=== PATIENT | male | born 1960 | race Caucasian/White ===

== ENCOUNTER 2016-10-27 19:25 | Inpatient (IN) | payer MEDICARE ==
[~2016-10-27] VITALS: Ht 188 cm; Wt 78.2 kg
[2016-10-27 19:28] VITALS: BP 148/95; PULSE 103; RESP 16; O2SAT 100
[2016-10-27 19:53] LABS: BASOPHILS % (AUTO) 0.2 % (0-3); EOSINOPHILS % (AUTO) 0 % (0-5); MONOCYTES % (AUTO) 8.8 % (4-12); Mean Corpuscular Hemoglobin 31.8 pg (27.0-35.0); Mean Corpuscular Volume 95.7 fL (81-100); NEUTROPHILS % (AUTO) 63.2 % (40-74); Platelet Count 243 bil/L (150-400)
--- NOTE | 2016-10-27 20:10 | ED.REPORT ---
HPI-General Illness Date of Service Oct 27, 2016 ED Provider: Alex Irizarry DO The patient is a homeless 56 year old male who presents to the ED via EMS after being found on the sidewalk with decreased level of consciousness just prior to arrival. The patient currently reports abdominal pain with recent nausea and vomiting. He denies fever, headache, chest pain, or other symptoms. EMS found the patient with a BP of 165/103, a heart rate of 107, and otherwise normal vital signs. He was given IV fluids en route. The patient presents confused and does not remember how he got here. Nursing Notes Stated Complaint: DECREASED LOC Chief Complaint: General Complaint Nursing Notes Reviewed: Yes Allergies: Coded Allergies: No Known Allergies (Unverified , 10/28/16) No Active Prescriptions or Reported Meds General Time Seen by MD: 19:47 Chief Complaint Other (Decreased Level of Consciousness) Hx Obtained From: Patient, EMS Unable to Obtain Hx: Patient condition, Mental status Arrived By: Ambulance Sudden in Onset?: Yes Onset Occurred: Onset unknown (Found just prior to arrival) Symptom Duration: Since onset Location: : Abdomen Quality: Painful Severity: Current: Moderate Severity: Maximum: Moderate Pertinent Negative: Relieved by nothing Recent Healthcare: No recent doctor visit Past Medical History Past Medical History None reported Past Surgical History None reported Social History Drug Use: THC Other Social History: Homeless Ambulatory Status Independent Review of Systems Full Review of Systems Constitutional: Denies: Fever Respiratory: Denies: Non-productive cough, Shortness of breath Cardiovascular: Denies: Chest pain GI: Reports: Abdominal pain, Nausea, Vomiting Neurologic: Reports: Change LOC, Confusion, Denies: Headache Complete sys rev & neg: except as marked. Physical Exam Vital Signs Vital Signs Date Time Temp Pulse Resp B/P Pulse Ox O2 Delivery O2 Flow Rate FiO2 10/27/16 23:33 140/68 10/27/16 19:28 36.7 103 16 148/95 100 Room Air Initial VS: Reviewed Head / Eyes: Atraumatic, Normocephalic ENT: Conjunctiva normal, No scleral icterus Neck: Supple, Full range of motion Respiratory: Breath sounds normal, Clear to auscultation, No respiratory distress Cardiovascular: Regular rate & rhythm, Heart sounds normal General/Constitutional: Awake, Alert Alertness: Positive: Confused Abdomen: Soft Tenderness/Guarding/Rebound: Positive: Tender diffuse (Mild) Color / Condition: Positive: Diaphoresis present Neurologic: Speech NL, No motor deficits, No sensory deficits Mental Status: Positive: Confused, Disoriented to place, Disoriented to time Interpretation & Diagnostics Arterial Blood Gas Report: Time: 23:41 pH 7.328 pCO2 33 pO2 87.2 cHCO3 16.8 cBase(B) -7.8 URINE DRUG SCREEN: + Marijuana Otherwise Negative Lab Results Interpretation Result Diagram: 10/28/16 0515 10/28/16 0515 Test 10/27/16 19:38 10/27/16 23:06 Hold Purple Top Tube Received (Received) Hold Blue Top Tube Received (Received) Troponin T < 0.010ug/L (0.0-0.011) Lipase 53U/L (13-60) Procalcitonin 0.03ng/mL (0.00-0.08) Hold Red Top Tube Received (Received) Hold Nebo Top Tube Received (Received) Alcohols < 10mg/dL (0-10) Urine Color Yellow (YELLOW) Urine Appearance Clear (CLEAR,HAZY) Urine pH 6.0 (5.0-8.0) Urine Specific Hartman 1.011 (1.003-1.035) Urine Protein Negativemg/dL (NEG,TRACE) Urine Glucose (UA) Negativemg/dL (NEGATIVE) Urine Ketones 15mg/dL (NEGATIVE) Urine Occult Blood Negative (NEGATIVE) Urine Nitrite Negative (NEGATIVE) Urine Bilirubin Negative (NEGATIVE) Urine Urobilinogen Normalmg/dL (NORMAL) Urine Leukocyte Esterase Negative (NEGATIVE) Urine RBC 0-2/hpf (0-2) Urine WBC 0-5/hpf (0-5) Urine Epithelial Cells Occasional/hpf (NONE-MOD) Urine Crystals None seen (NONE SEEN) Urine Bacteria None/hpf (NONE-FEW) Urine Hyaline Casts Occasional/lpf (NONE) Urine Granular Casts None seen (NONE SEEN) Urine Waxy Casts None seen (NONE SEEN) Urine Red Blood Cell Casts None seen (NONE SEEN) Urine White Blood Cell Casts None seen (NONE SEEN) Urine Mucus None seen (None Seen) Urine Trichomonas None seen (NONE SEEN) Urine Yeast None (NONE SEEN) Urine Culture Reflexed Not indicated ECG Interpretation ECG Interpretation: Sinus rhythm rate 91 Time: 20:31 Interpreted by: ED physician X-Ray Chest Interpretation Chest Xray Interpretation: Normal x-ray View: Portable, 1 view Interpretation / Wet Read by: Wet read ED physician CT Head Interpretation IMPRESSION: No acute intracranial disease process. Dictated by: Mary Stanton MD, PhD on 10/27/2016 at 21:22 Study: Head CT no contrast Interpretation / Wet Read by: Interpret - Radiologist CT Abd / Pelvis Interpretation IMPRESSION: No CT findings to explain the patient's clinical symptoms. Report transmitted to the ED by radiologist Jhonny Aparicio M.D. at 10/28/2016 - 2:28:26 AM PDT Study type: Abdominal CT IV contrast Interpretation / Wet Read by: Interpret - Radiologist Re-Eval/Medical Decision Med Decision/Clinical Course Patient presents with altered mental status and is found of metabolic acidosis. He was quite diaphoretic on presentation. Laboratory work was reviewed. He was fluid resuscitated. At first he seemed rather delirious. This seemed to improve however then he was showing signs of alcohol withdrawal with this he was scored high as 20. He was treated with benzodiazepines and a banana bag. He then had abdominal pain and vomiting. CT scan was reassuring. Laboratory work seem to be improving. He was in no condition be discharged. He will be admitted to the PCU for further care and disposition. Time of Eval: 22:30 Patient Status: Condition improved Re-Evaluation/Progress Note: Patient is now more awake and alert. Discussed with patient x-ray, CT, and lab results, diagnosis, and plan for admit. Patient agrees with plan for care and all questions were addressed. Consultation : Referral / Consult Name: Indu Lee DO Consulted With: Hospitalist Call Returned at: 22:56 Microstrategy Architect Developer: Agrees with eval, Agrees with plan, Accepts admit Note: Requests ABG Counseled Regarding: Diagnosis, Lab results, Need for admission Discharge & Departure Primary Impression: Altered mental status Altered mental status type: disorientation Qualified Code: R41.0 - Disorientation, unspecified Additional Impressions: Metabolic acidosis Alcohol withdrawal Complication of substance-induced condition: with delirium Qualified Code: F10.231 - Alcohol dependence with withdrawal delirium Lactic acid acidosis Abdominal pain Abdominal location: generalized Qualified Code: R10.84 - Generalized abdominal pain Disposition: ADMITTED TO HOSPITAL Discharge Condition All VS Reviewed: Yes Condition: Improved Referrals: [facility] Scribe Attestation Portions of this note were transcribed by Jazmine Clark. IDr. Irizarry, personally performed the history, physical exam, and medical decision-making; I reviewed and confirmed the accuracy of the information in the transcribed note. Signed by: Tuan Mena, 10/28/2016, 02:45 copies to: [facility] Alex Irizarry DO Oct 27, 2016 20:10 JAZMINE CLARK Oct 27, 2016 20:19 Urine Waxy Casts None seen (NONE SEEN) Urine Red Blood Cell Casts None seen (NONE SEEN) Urine White Blood Cell Casts None seen (NONE SEEN) Urine Mucus None seen (None Seen) Urine Trichomonas None seen (NONE SEEN) Urine Yeast None (NONE SEEN) Urine Culture Reflexed Not indicated ECG Interpretation ECG Interpretation: Sinus rhythm rate 91 Time: 20:31 Interpreted by: ED physician X-Ray Chest Interpretation Chest Xray Interpretation: Normal x-ray View: Portable, 1 view Interpretation / Wet Read by: Wet read ED physician CT Head Interpretation IMPRESSION: No acute intracranial disease process. Dictated by: Mary Stanton MD, PhD on 10/27/2016 at 21:22 Study: Head CT no contrast Interpretation / Wet Read by: Interpret - Radiologist CT Abd / Pelvis Interpretation IMPRESSION: No CT findings to explain the patient's clinical symptoms. Report transmitted to the ED by radiologist Jhonny Aparicio M.D. at 10/28/2016 - 2:28:26 AM PDT Study type: Abdominal CT IV contrast Interpretation / Wet Read by: Interpret - Radiologist Re-Eval/Medical Decision Time of Eval: 22:30 Patient Status: Condition improved Re-Evaluation/Progress Note: Patient is now more awake and alert. Discussed with patient x-ray, CT, and lab results, diagnosis, and plan for admit. Patient agrees with plan for care and all questions were addressed. Consultation : Referral / Consult Name: Indu Lee DO Consulted With: Hospitalist Call Returned at: 22:56 Microstrategy Architect Developer: Agrees with eval, Agrees with plan, Accepts admit Note: Requests ABG Counseled Regarding: Diagnosis, Lab results, Need for admission Discharge & Departure Primary Impression: Altered mental status Altered mental status type: disorientation Qualified Code: R41.0 - Disorientation, unspecified Additional Impressions: Metabolic acidosis Alcohol withdrawal Complication of substance-induced condition: with delirium Qualified Code: F10.231 - Alcohol dependence with withdrawal delirium Disposition: ADMITTED TO HOSPITAL Discharge Condition All VS Reviewed: Yes Condition: Improved Referrals: [facility] Scribe Attestation Portions of this note were transcribed by Jazmine Clark. I, Dr. Irizarry, personally performed the history, physical exam, and medical decision-making; I reviewed and confirmed the accuracy of the information in the transcribed note. Signed by: Tuan Mena, 10/28/2016, 02:45 copies to: [facility] Alex Irizarry DO Oct 27, 2016 20:10 JAZMINE CLARK Oct 27, 2016 20:19
[2016-10-27 20:59] LABS: TROPONIN T < 0.010 ug/L (0.0-0.011)
[2016-10-27 21:01] LABS: Lipase 53 U/L (13-60)
[2016-10-27] MEDS ORDERED: 0.9% Sodium Chloride 1,000 ML IV ONE ×2 (21:10→23:00)
--- NOTE | 2016-10-27 21:25 | DRSVH ---
PROCEDURE: CT BRAIN WITHOUT CONTRAST ([id number]) INDICATIONS: altered mental status TECHNIQUE: Noncontrast 4.5 mm thick angled axial sections acquired from the foramen magnum to the vertex, with c oronal reformats. COMPARISON: None. FINDINGS: Image quality: Excellent. CSF spaces: Basal cisterns are patent. No extra-axial fluid collections. Ventricles are normal in size and shape. Brain: No midline shift. No intracranial masses or hemorrhage. Chavez-white matter interface is norm al. Cephalization noted in the anterior lateral margin of the left temporal lobe possibly related to remote trauma; please correlate with clinical history. Mild periventricular and subcortical white ma tter chronic microvascular ischemic changes are noted. Skull and face: Calvarium and visualized facial bones are intact, without suspicious lesions. Sinuses: Visualized sinuses and mastoids are clear. IMPRESSION: No acute intracranial disease process. Dictated by: Mary Stanton MD, PhD on 10/27/2016 at 21:22 Approved by: Mary Stanton MD, PhD on 10/27/2016 at 21:23
[2016-10-27 23:28] LABS: APPEARANCE,URINE CLEAR (CLEAR,HAZY); COLOR,URINE YELLOW (YELLOW); OCCULT BLOOD,URINE NEGATIVE (NEGATIVE); UROBILINOGEN,URINE NORMAL (NORMAL)
[2016-10-27 23:33] VITALS: BP 140/68
--- NOTE | 2016-10-27 23:48 | ABG ---
DateTimeAnalyzed 23:44:00 -_ pH ____7.328 - 7.350 7.450 pCO2 ___32.9__ -mmHg 35.0 45.0 pO2 ___87.2__ -mmHg 69.0 116 HCO3- ___16.8__ -mmol/L 22.0 26.0 ABE ___-7.8__ -mmol/L -2.0 2.0 tHb ___12.7__ -g/dL O2Hb ___93.9__ -% COHb ____1.1__ -% MetHb ____1.0__ -% sO2 ___95.9__ -% 25.0 FIO2 ___21.0__ -% Drawn By MK - Date/Time Notified____ 23:48:00 -_ Notified By MK - B 750 -mmHg tO2 ___16.8__ -Vol% Ajit test _Positive -
[2016-10-28] VITALS (11 sets, daily range): BP systolic 115–160; BP diastolic 65–97; PULSE 55–96; RESP 16–23; O2SAT 96–100
[2016-10-28] MEDS ORDERED: Thiamine Inj 100 MG, Folic Acid Inj 1 MG, Magnesium Sulfate 50% Inj 2 GM, Multivitamins... IV ONE ×5
[2016-10-28] MEDS ORDERED: Ondansetron 2 mg/mL 2 mL Inj IVPUSH PRN ×2 (00:05→00:30)
--- NOTE | 2016-10-28 00:23 | PCM.HPMED ---
Subjective Date of Service Oct 28, 2016 Primary Provider: Admitting Physician: Indu Lee DO Primary Care Physician: Aaron Attending Physician: Indu Lee DO Admit Status: From the Emergency Department Chief Complaint: Abdominal pain History of Present Illness: This is a 56-year-old male who presented via EMS due to decreased level of consciousness. EMS apparently found the patient [place] a bridge with decreased level of consciousness. The patient states that he does not remember how he arrived at the hospital or the events that transpired before EMS transport. His story seems to be evolving and the story he provided to me was a very different story then the one provided the emergency department physician. The patient states that beginning sometime this afternoon he began to have right lower quadrant abdominal pain along with nausea and vomiting. He denies any blood in the vomit. This was accompanied by several episodes of diarrhea today without hematochezia or melena. He also admits to chills. He states that due to the retching he is also experiencing a frontal headache. He denies any chest pain or pressure, shortness of breath, numbness or tingling extremities, visual changes. He denies any trauma to his body. Initial vital signs on admit were temperature 36.7 Celsius, pulse 103, respiratory rate 16, blood pressure 148/95, satting 100% on room air. CBC showed no concerning abnormalities. Sodium 133, chloride 88, carbon dioxide 12 , BUN 10, creatinine 0.95, glucose 144, lactic acid 2.5, AST 154, ALT 86, troponin less than 0.010. Pro calcitonin 0.03 and lipase 53. Urine tox screen was positive for THC. Urinalysis showed no concerning abnormalities. ABG: PH 7.328, PCO2 33, PO2 87.2, HCO3 16.8. CT scan of the brain without contrast showed no acute intracranial abnormalities. Night hawk reading of CT abdomen with contrast showed no concerning abnormalities. Chest xray showed no acute cardiopulmonary disease. Review of Systems: A comprehensive review of systems was conducted with the patient and found to be negative except as above in the History of Present Illness. Allergies Coded Allergies: No Known Allergies (Unverified , 10/28/16) Home Medications Patient takes no medications. PMH Bipolar disorder Possible history of alcoholism (reported to nursing but no ER or resident). Surgical History Patient initially denied any past surgical history. On examination of his abdomen he has a large midline surgical scar which he states was due to "removing a bug." Family History He states his mom and dad are healthy Social History Hx Alcohol Use: No Hx Substance Use: Yes Hx Tobacco Use: No Additional Information Uses marijuana. Exam Vital Signs Vital Sign - Last Date Time Temp Pulse Resp B/P Pulse Ox O2 Delivery O2 Flow Rate FiO2 10/27/16 23:33 140/68 10/27/16 19:28 36.7 103 16 100 Room Air Intake and Output 10/27/16 10/27/16 10/28/16 Cumulative From/Thru 15:00 23:00 07:00 10/27/16 19:28 - 10/27/16 23:07 Intake Total 1300 ml 1000 ml 2300 ml Balance 1300 ml 1000 ml 2300 ml Intake IV Total 1300 ml 1000 ml 2300 ml Exam General: No acute distress, well-developed, thin man. HEENT: Normocephalic,. Small abrasion midline forehead. External ears without defect. Pupils equal, round, and reactive to light and accommodation. Anicteric sclerae, moist conjunctivae, and no lid lag. Oropharynx free of erythema and cobble stoning with moist mucosa. Neck: Supple with full range of motion. No jugular venous distension. No bruits. No lymphadenopathy or thyromegaly. Cardiovascular: Regular rate and rhythm with no murmurs, rubs, or gallops appreciated Pulmonary: Clear to auscultation bilaterally with no crackles, wheezes, or rhonchi. Normal respiratory effort with no use of accessory muscles. Abdomen: Bowel tones present. Soft, some tenderness in right lower quadrant of abdomen, nondistended. No hepatosplenomegaly or masses appreciated. Midline surgical scar that is well-healed. Extremities: No clubbing, cyanosis, edema, or lymphadenopathy appreciated. Skin: Normal temperature, turgor, and texture; no rash, ulcers, or subcutaneous nodules appreciated. Neurological: Cranial nerves grossly intact. Normal muscle strength, tone, and bulk. Reflexes, coordination, and sensory function within normal limits. No known gait impairment. Psychiatric: Patient is alert to person but not place or time. Lab and Diagnostics Result Diagram: 10/27/16193710/27/161937 X-Rays, CTs and MRIs CT of the brain without contrast on 10/27/2016: IMPRESSION: No acute intracranial disease process. Dictated by: Mary Stanton MD, PhD on 10/27/2016 at 21:22 Wet read chest xray 10/28/2016: No acute cardiopulmonary disease. Nighthawk reading CT of the abdomen with contrast on 10/28/2016: Impression: No CT findings to explain the patient's clinical symptoms. Radiologist: Jhonny Aparicio MD. Assessment & Plan This is a 56-year-old male who presents for decreased level of consciousness. He has an unusual story which changed several times in the emergency department. He relayed to me that he began feeling ill earlier today with abdominal pain, diarrhea, chills, nausea, and vomiting. Due to the dry heaving he is also developed a frontal headache. The abdominal pain is present in the right lower quadrant and described as sharp. CT of head and abdomen showed no concerning abnormalities. Doubt infectious etiology as WBC within normal limits and procalcitonin .03. Abdominal pain, present on admission, ongoing: -Right lower quadrant abdominal pain with diarrhea, nausea, and vomiting. -Unknown etiology. Nighthawk reading of CT of abdomen with contrast showed no concerning abnormalities. -Differential includes appendicitis, viral gastroenteritis, colitis, diverticulitis, nephrolithiasis, pyelonephritis. -Patient does not meet sepsis criteria. -PCR stool panel ordered. Anion gap metabolic acidosis, present on admission: -Anion gap of 33. Blood gas shows ph of 7.328, PCO2 33, PO2 of 87.2, bicarbonate 16.8 -This is likely secondary to lactic acidosis which was 2.5 on arrival. -We will repeat lactic acid's every 2 hours and bolus with fluids as needed. -CMP in am. Possible history of alcoholism, present on admission: -Patient received banana bag in ED. -CIWA protocol ordered. Hyponatremia, present on admission, ongoing: -Sodium level of 133. -We will start normal saline at 75 L per hour. Elevated transaminases, present on admission, ongoing: -On admit AST 154, ALT 86. -The pattern suggests possible alcoholism. Patient ethanol level on admit was within normal limits. Patient given banana bag in the emergency department. -We will order hepatitis panel. -Consider right upper quadrant ultrasound in the morning. DVT prophylaxis with Lovenox Patient is admitted under observation status with expected length of stay less than 2 midnights due to severity of presenting symptoms, risk of adverse event, and complexity of treatment plan. Pain Evaluation: Adequate Pain Control Resuscitation Status: DNR/DNI:Do Not Resuscitate/Intubate Attending Statement The patient was seen and examined together with house staff on 10/28/2016 and I agree with the history, exam and plan as outlined in the note above. Jr Mcnair DO Oct 28, 2016 00:23 Indu Lee DO Oct 28, 2016 06:11
[2016-10-28] MEDS ORDERED: Polyethylene Glycol (PEG) 17 Gm Powder PO PRN (00:30)
[2016-10-28] MEDS ORDERED: Alum-Mag Hydrox-Simeth 30 mL Suspension PO PRN (00:30)
[2016-10-28] MEDS ORDERED: 0.9% Sodium Chloride 500 ML IV ONE (02:30)
[2016-10-28] MEDS: 0.9% Sodium Chloride 1,000 ML IV SCH ×3 (04:05→19:16)
[2016-10-28 05:39] LABS: BASOPHILS % (AUTO) 0.1 % (0-3); EOSINOPHILS % (AUTO) 0 % (0-5); MONOCYTES % (AUTO) 4.7 % (4-12); Mean Corpuscular Hemoglobin 31.9 pg (27.0-35.0); Mean Corpuscular Volume 94.6 fL (81-100); NEUTROPHILS % (AUTO) 87.1 % (40-74); Platelet Count 167 bil/L (150-400)
--- NOTE | 2016-10-28 06:26 | NUR ---
P) Admit Pt. states he doesn't drink alcohol, but he does drink beer, states last beer was a week ago. Pt. also claims he is Bipolar but stopped taking his meds 4 years go, does not know what he took, does not remember the pharmacy he used but it was in [place]. Continues to c/o headache but it has improved with drinking ice water. His cardiac rhythm is sinus with some PVC's, initial CIWA was 26, then he went to sleep without any further medication. Initially febrile with a temp of 38c axillary he came down to 37.2 with passive cooling measures.Breath sounds slightly coarse with a faint expiratory wheeze scattered throughout. Pt. received 1mg ativan in ER, on arrival to floor his heart rate was in the 60's, now it is in the 90's and he is dozing restlessly. I) Meds per 's orders, cont. to monitor. E) Resting restlessly.
--- NOTE | 2016-10-28 08:57 | DRSVH ---
PROCEDURE: CT ABDOMEN AND PELVIS WITH CONTRAST ([id number]) INDICATIONS: abdominal pain vomiting, TECHNIQUE: After the administration of intravenous contrast, 5 mm thick sections acquired from the diaphragm to the symphysis. 5 mm coronal and sagittal reformats were acquired. For radiation dose reduction, the following was used: automated exposure control, adjustment of mA and/or kV according to patient siz e. COMPARISON: None. FINDINGS: Image quality: Excellent. ABDOMEN: Lung bases: Lung bases are clear. Heart size is normal. Solid organs: There is diffuse hepatic fatty infiltration. Liver and spleen are normal in size and e nhancement. Gallbladder is normal. Biliary system is non dilated. Pancreas enhances normally. No adrenal nodules. Kidneys demonstrate normal size and enhancement, without hydronephrosis. Peritoneum and bowel: There are scattered colonic diverticula. No evidence for active diverticulitis . Fluid filled normal caliber stomach and small bowel loops are noted. Bowel loops demonstrate normal wall thickness. No free fluid or air. Nodes and vessels: No retroperitoneal or mesenteric adenopathy by size criteria. Aorta and inferior vena cava are normal in size. Miscellaneous: No ventral hernias. PELVIS: Genitourinary: Bladder wall thickness is normal. Miscellaneous: No inguinal hernias or adenopathy. Bones: No suspicious bony lesions. No vertebral body compression fractures. IMPRESSION: 1. Fluid-filled stomach and nondistended small bowel loops. The finding is nonspecific and could be r elated to gastroenteritis. Clinical correlation suggested. 2. Colonic diverticulosis. No active diverticulitis. 2. Hepatic steatosis. No significant discrepancy with the cnc machinist 2nd shift radiology preliminary report. Dictated by: Terri Parr M.D. on 10/28/2016 at 8:51 Transcribed by: LUIS on 10/28/2016 at 8:56 Approved by: Terri Parr M.D. on 10/28/2016 at 9:15
--- NOTE | 2016-10-28 08:59 | DRSVH ---
PROCEDURE: X-RAY CHEST ONE VIEW, PORTABLE ([id number]) INDICATIONS: cough TECHNIQUE: One view of the chest was acquired. COMPARISON: None. FINDINGS: Surgical changes and devices: None. Lungs and pleura: No pleural effusions or pneumothorax. Lungs are clear. Mediastinum: Mediastinal contours appear normal. Heart size is normal. Bones and chest wall: No suspicious bony lesions. Overlying soft tissues appear unremarkable. IMPRESSION: No acute cardiopulmonary disease. Dictated by: Kenneth Desai [facility] Interpreted: Mary Stanton MD on 10/28/2016 at 8:58 Transcribed by: DANIA on 10/28/2016 at 8:58 Approved by: Mary Stanton MD, PhD on 10/28/2016 at 11:27
[2016-10-28] MEDS: Multivit-Miner-Folic Acid-Iron Tablet PO SCH (09:51)
--- NOTE | 2016-10-28 12:05 | NUR ---
Social Work: Initial Assessment D: EMR reviewed. Pt is a 56 y/o male Marilee for AMS, metabolic acidosis per H&P. Pt is homeless and arrived via ambulance. SW met with pt at bedside to conduct initial assessment. Pt was alert and oriented x3. SW explained role and wrote phone number on white board in room. Pt confirmed he has completed DPOA/advanced directive ppw and SW encourage pt to provide a copy to the hospital. Pt can't recall the name of his DPOA but states that he lives in [place]. Pt confirmed he does not have any [facility] in the area and does not have anyone the hospital can contact for discharge planning. Pt's insurance is Medicare. Pt does not have a PCP. Pt declined scheduling a new PCP appointment at [facility]. SW encouraged pt to call SW phone number on white board if he changed his mind. Pt does not own or use any DME. Pt does not drive. Pt is homeless and lives under [place] bridge in [place]. SW asked pt if he would like to discuss community resources for housing, pt declined. SW encouraged pt to call phone number on white board if pt would like community resources for food, clothing, housing. [facility] does not anticipate any discharge needs at this time but will continue to follow. A: Pt who is homeless and independent at baseline P: Pt likely to discharge back to homeless when medically stable. Pt declines community resources. [facility] does not anticipate any discharge needs at this time but will continue to follow if needs arise. ALISHA Barros Addendum: 10/28/16 at 1215 by GRISEL MACKEY Amended: Links added.
[2016-10-28 13:12] LABS: Unsaturated Iron Binding 121.7 ug/dL
[2016-10-28] MEDS ORDERED: Potassium Chloride 20 mEq SR Tablet PO ONE (14:55)
--- NOTE | 2016-10-28 15:15 | PCM.PNMED ---
Subjective Date of Service Oct 28, 2016 Subjective This is a 56-year-old male who presented via EMS due to decreased level of consciousness. He reports that he was sleeping under a bench last night when he hit his head after falling. He feels nauseous this morning. He reports that he only drank 2 beers yesterday. He does not regularly drink alcohol and does not drink any moonshine or other substances. He does not do any illicit drugs. He was living in [place] during the Winter and moved back 09/27/16. Exam Vital Signs Vital Sign - Last Date Time Temp Pulse Resp B/P Pulse Ox O2 Delivery O2 Flow Rate FiO2 10/28/16 12:23 36.8 92 23 126/83 98 Room Air Intake and Output 10/27/16 10/27/16 10/28/16 Cumulative From/Thru 15:00 23:00 07:00 10/27/16 19:28 - 10/28/16 06:25 Intake Total 1300 ml 3503 ml 4803 ml Output Total 600 ml 600 ml Balance 1300 ml 2903 ml 4203 ml Intake Oral 1000 ml 1000 ml IV Total 1300 ml 2503 ml 3803 ml Output Urine Total 600 ml 600 ml # Bowel Movements 0 0 Exam General: No acute distress, well-developed, thin man. HEENT: Normocephalic,. Small abrasion midline forehead. External ears without defect. Anicteric sclerae, moist conjunctivae, and no lid lag. Neck: Supple with full range of motion. Cardiovascular: Regular rate and rhythm with no murmurs, rubs, or gallops appreciated Pulmonary: Clear to auscultation bilaterally with no crackles, wheezes, or rhonchi. Normal respiratory effort with no use of accessory muscles. Abdomen: Bowel tones present. Soft,nontender, nondistended. No hepatosplenomegaly or masses appreciated. Midline surgical scar that is well- healed. Extremities: No clubbing, cyanosis, edema, or lymphadenopathy appreciated. Skin: Diffusely jeffers. Normal temperature, turgor, and texture; no rash or ulcers appreciated. Neurological: Cranial nerves grossly intact. Normal muscle strength, tone, and bulk. Psychiatric: Patient is alert and oriented to person, place, and time IVs and Medications Medications Reviewed: Medications were reviewed in detail Lab and Diagnostics Result Diagram: 10/28/1615 10/28/16514 X-Rays, CTs and MRIs CT of the brain without contrast on 10/27/2016: IMPRESSION: No acute intracranial disease process. Dictated by: Mary Stanton MD, PhD on 10/27/2016 at 21:22 PROCEDURE: X-RAY CHEST ONE VIEW, PORTABLE IMPRESSION: No acute cardiopulmonary disease. Approved by: Mary Stanton MD, PhD on 10/28/2016 at 11:27 PROCEDURE: CT ABDOMEN AND PELVIS WITH CONTRAST IMPRESSION: 1. Fluid-filled stomach and nondistended small bowel loops. The finding is nonspecific and could be related to gastroenteritis. Clinical correlation suggested. 2. Colonic diverticulosis. No active diverticulitis. 2. Hepatic steatosis. No significant discrepancy with the shift stacker radiology preliminary report. Approved by: Terri Parr M.D. on 10/28/2016 at 9:15 Assessment & Plan This is a 56-year-old male who presents for decreased level of consciousness. He has an unusual story which changed several times in the emergency department. He relayed to me that he began feeling ill earlier today with abdominal pain, diarrhea, chills, nausea, and vomiting. Due to the dry heaving he is also developed a frontal headache. The abdominal pain is present in the right lower quadrant and described as sharp. CT of head and abdomen showed no concerning abnormalities. Doubt infectious etiology as WBC within normal limits and procalcitonin .03. Alcohol dependence, present on admission, active: -Pt reports only having 2 beers occasionally but probable alcohol dependence -Patient received banana bag in ED. -Multivitamin and thiamine daily -WA protocol ordered. Acute encephalopathy, present on admission, improved. -Likely secondary to probable alcohol intoxication and withdrawal as above -Pt was disoriented to place and time at time of admission - Continue to monitor Possible hemochromatosis, present on admission. - Pt has skin hyperpigmentation and elevated transaminases - Iron 185, TIBC 307, 60% iron saturation, ferritin 687; iron greater than 150 and ferritin greater than 300 are associated with hemochromatosis - Consider genetic testing - Continue to monitor blood work daily Abdominal pain, present on admission, resolved: -Right lower quadrant abdominal pain with diarrhea, nausea, and vomiting. -Unknown etiology. CT scan shows possible gastroenteritis. -Differential includes appendicitis, viral gastroenteritis, colitis, diverticulitis, nephrolithiasis, pyelonephritis. -Patient does not meet sepsis criteria. -PCR stool panel ordered. Anion gap metabolic acidosis, present on admission, improving -Anion gap of 33 on admission. Blood gas shows ph of 7.328, PCO2 33, PO2 of 87.2, bicarbonate 16.8 on admission - Improved to 19 today -Possibly secondary to lactic acidosis which was 2.5 on arrival.Lactic acidosis resolved.Possibly related to ethanol intoxication or iron from hematochromatosis. -Continue monitoring Hyponatremia, present on admission, ongoing: -Sodium level of 133. -We will start normal saline at 75 L per hour. Elevated transaminases, present on admission, ongoing: -On admit AST 154, ALT 86. -The pattern suggests possible alcoholism. Patient ethanol level on admit was within normal limits. Patient given banana bag in the emergency department. Possible hemochromatosis -Hepatitis panel pending -Consider right upper quadrant ultrasound if abdominal pain returns DVT prophylaxis with Lovenox VTE Mechanical Devices: Intermittant Pneumatic CD Resuscitation Status: DNR/DNI:Do Not Resuscitate/Intubate Attending Statement The patient was seen and examined together with Dr. Hernández on 10/28/16 and I have added additional information to the note above. Gena Hernández DO Oct 28, 2016 14:44 Beata Richards DO Oct 30, 2016 15:00
--- NOTE | 2016-10-28 18:02 | NUR ---
Mentation.. Has had coherent conversation for the most part. CIWA 7-11. Pt has not required any meds other than for headache. Has been found up amb into the bathroom by himself and pulled his IV out.. Pt impulsive at times. Reminders given with instructions to call for help.
--- NOTE | 2016-10-28 18:55 | NUR ---
Case Management: IMM explained to patient at 1740. Signed original placed in chart, copy given to patient. Josephine Villafana RN
[2016-10-29] VITALS (8 sets, daily range): BP systolic 131–145; BP diastolic 85–96; PULSE 53–79; RESP 12–18; O2SAT 95–100
[2016-10-29 03:10] LABS: Hepatitis A Antibody IgM Negative (Negative); Hepatitis B Core Antibody IgM Negative (Negative)
[2016-10-29 04:23] LABS: Mean Corpuscular Hemoglobin 31.8 pg (27.0-35.0); Mean Corpuscular Volume 94.7 fL (81-100); NEUTROPHILS % (AUTO) 73.4 % (40-74); Platelet Count 134 bil/L (150-400)
[2016-10-29 04:24] LABS: BASOPHILS % (AUTO) 0.1 % (0-3); EOSINOPHILS % (AUTO) 0.8 % (0-5); MONOCYTES % (AUTO) 6.6 % (4-12)
[2016-10-29 04:48] LABS: Magnesium 1.9 mg/dL (1.6-2.6); Phosphorus 2.3 mg/dL (2.5-4.9)
[2016-10-29] MEDS ORDERED: Potassium Chloride 20 mEq SR Tablet PO ONE (06:50)
[2016-10-29] MEDS: 0.9% Sodium Chloride 1,000 ML IV SCH (07:59)
[2016-10-29] MEDS: Multivit-Miner-Folic Acid-Iron Tablet PO SCH (08:31)
--- NOTE | 2016-10-29 11:50 | PCM.PNMED ---
Subjective Date of Service Oct 29, 2016 Subjective This is a 56-year-old male who presented via EMS due to decreased level of consciousness. Overnight, his CIWA score ranged from 7 to 9. This morning it was 2. He has diarrhea and has not been able to eat solid food yet. He no longer has abdominal pain. He does not have chest pain or dyspnea. He has never used IV drugs. Exam Vital Signs Vital Sign - Last Date Time Temp Pulse Resp B/P Pulse Ox O2 Delivery O2 Flow Rate FiO2 10/29/16 05:21 72 10/29/16 03:45 36.8 18 131/85 98 Room Air Intake and Output 10/28/16 10/28/16 10/29/16 Cumulative From/Thru 15:00 23:00 07:00 10/27/16 19:28 - 10/29/16 05:32 Intake Total 2610 ml 1005 ml 8418 ml Output Total 2700 ml 600 ml 3900 ml Balance -90 ml 405 ml 4518 ml Intake Oral 1850 ml 300 ml 3150 ml IV Total 760 ml 705 ml 5268 ml Output Urine Total 2700 ml 600 ml 3900 ml # Bowel Movements 1 0 1 Exam General: No acute distress, well-developed, thin man. HEENT: Normocephalic,. Small abrasion midline forehead. External ears without defect. Anicteric sclerae, moist conjunctivae, and no lid lag. Neck: Supple with full range of motion. Cardiovascular: Regular rate and rhythm with no murmurs, rubs, or gallops appreciated Pulmonary: Clear to auscultation bilaterally with no crackles, wheezes, or rhonchi. Normal respiratory effort with no use of accessory muscles. Abdomen: Bowel tones present. Soft,nontender, nondistended. No hepatosplenomegaly or masses appreciated. Midline surgical scar that is well- healed. Extremities: No clubbing, cyanosis, edema, or lymphadenopathy appreciated. Skin: Diffusely jeffers. Lipoma right base of neck and right upper back. Normal temperature, turgor, and texture; no rash or ulcers appreciated. Neurological: Cranial nerves grossly intact. Normal muscle strength, tone, and bulk. Psychiatric: Patient is alert and oriented to person, place, and time IVs and Medications Medications Reviewed: Medications were reviewed in detail Lab and Diagnostics Result Diagram: 10/29/16 0415 10/29/16414 X-Rays, CTs and MRIs CT of the brain without contrast on 10/27/2016: IMPRESSION: No acute intracranial disease process. Dictated by: Mary Stanton MD, PhD on 10/27/2016 at 21:22 PROCEDURE: X-RAY CHEST ONE VIEW, PORTABLE IMPRESSION: No acute cardiopulmonary disease. Approved by: Mary Stanton MD, PhD on 10/28/2016 at 11:27 PROCEDURE: CT ABDOMEN AND PELVIS WITH CONTRAST IMPRESSION: 1. Fluid-filled stomach and nondistended small bowel loops. The finding is nonspecific and could be related to gastroenteritis. Clinical correlation suggested. 2. Colonic diverticulosis. No active diverticulitis. 2. Hepatic steatosis. No significant discrepancy with the resident assistant radiology preliminary report. Approved by: Terri Parr M.D. on 10/28/2016 at 9:15 Assessment & Plan This is a 56-year-old male who presents for decreased level of consciousness. He has an unusual story which changed several times in the emergency department. He relayed to me that he began feeling ill earlier today with abdominal pain, diarrhea, chills, nausea, and vomiting. Due to the dry heaving he is also developed a frontal headache. The abdominal pain is present in the right lower quadrant and described as sharp. CT of head and abdomen showed no concerning abnormalities. Doubt infectious etiology as WBC within normal limits and procalcitonin .03. Alcohol dependence, present on admission, improving: -Pt reports only having 2 beers occasionally but probable alcohol dependence -Patient received banana bag in ED. -Multivitamin and thiamine daily -CIWA protocol Acute encephalopathy, present on admission, resolved. -Likely secondary to probable alcohol intoxication and withdrawal as above -Pt was disoriented to place and time at time of admission - Continue to monitor Hemochromatosis, present on admission. - Pt has skin hyperpigmentation and elevated transaminases - Iron 185, TIBC 307, 60% iron saturation, ferritin 687; iron greater than 150 and ferritin greater than 300 are associated with hemochromatosis - Consider genetic testing - Continue blood work daily - Hematology referral as an outpatient Abdominal pain and diarrhea, present on admission, resolved: -Right lower quadrant abdominal pain with diarrhea, nausea, and vomiting. -Unknown etiology. CT scan shows possible gastroenteritis. -Differential includes appendicitis, viral gastroenteritis, colitis, diverticulitis, nephrolithiasis, pyelonephritis. -Patient does not meet sepsis criteria. -Advance diet as tolerate -PCR stool panel ordered. Anion gap metabolic acidosis, present on admission, improving -Anion gap of 33 on admission. Blood gas shows ph of 7.328, PCO2 33, PO2 of 87.2, bicarbonate 16.8 on admission - Improved to 18 today -Possibly secondary to lactic acidosis which was 2.5 on arrival.Lactic acidosis resolved.Possibly related to ethanol intoxication or iron from hematochromatosis. -Continue monitoring Hypokalemia, acute, resolved - Likely secondary to diarrhea - 40 meq KCl yesterday and today - Continue to monitor tomorrow morning Hyponatremia, present on admission, resolved: -Sodium level of 138 today. -Discontinue IV fluids Elevated transaminases, present on admission, ongoing: -On admit AST 154, ALT 86. -The pattern suggests possible alcoholism. Patient ethanol level on admit was within normal limits. Patient given banana bag in the emergency department. 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 MELD score 6, 1.9% estimated 3 month mortality. -Start propanolol 20 mg twice daily for variceal hemorrhage prophylaxis -Monitor heart rate Hepatitis C, present on admission - Pt will need to follow up with a PCP about pursuing treatment Bipolar disorder, chronic - Follow up with psychologist and PCP as outpatient DVT prophylaxis with Lovenox VTE Mechanical Devices: Intermittant Pneumatic CD Resuscitation Status: DNR/DNI:Do Not Resuscitate/Intubate Attending Statement The patient was seen and examined together with Dr. Hernández on 10/29/16 and I have added additional information to the note above. Gena Hernández DO Oct 29, 2016 06:36 Beata Richards DO Oct 29, 2016 17:59
--- NOTE | 2016-10-29 15:36 | NUR ---
Patient progressing towards planned outcomes. Alert and oriented x 3. No complaints. Denies pain. Vital signs stable. Up with SBA, ambulating in room without difficulty. Tolerating diet. Denies nausea. Will continue to monitor.
[2016-10-30 02:48] LABS: BASOPHILS % (AUTO) 0.2 % (0-3); EOSINOPHILS % (AUTO) 2.1 % (0-5); MONOCYTES % (AUTO) 9.7 % (4-12); Mean Corpuscular Hemoglobin 32.6 pg (27.0-35.0); Mean Corpuscular Volume 94.7 fL (81-100); NEUTROPHILS % (AUTO) 61.2 % (40-74); Platelet Count 133 bil/L (150-400)
[2016-10-30 03:03] VITALS: BP 144/91; PULSE 68; RESP 15; O2SAT 100
[2016-10-30 03:11] LABS: Phosphorus 3.5 mg/dL (2.5-4.9)
--- NOTE | 2016-10-30 04:14 | NUR ---
Mentation Pt conversed briefly with staff. Pt appropriate. Pt states multiple times that he is going to go home tomorrow. Pt anxious to d/c from hospital. Pt slept well throughout the night.
[2016-10-30 05:30] VITALS: PULSE 68
[2016-10-30 08:25] VITALS: BP 128/85; PULSE 56; RESP 16; O2SAT 99
[2016-10-30] MEDS: Multivit-Miner-Folic Acid-Iron Tablet PO SCH (08:32)
--- NOTE | 2016-10-30 12:02 | PCM.DIMED ---
Gena Hernández DO 10/30/16 0722: Discharge Instructions Date of Service Oct 30, 2016 Dates of Hospitalization Oct 27, 2016 at 23:35 Discharge Diagnosis Discharge Diagnosis You have hemochromatosis (iron overload) and hepatitis C. You blood pressure was also slightly high. Diet Discharge Diet: No restrictions Activity Discharge Activity: No restrictions Call your provider Call your provider for: Fever or Chills, Shortness of breath, Bleeding, Chest pain, Vomitting, Excessive diarrhea, Weakness (unilateral) Patient Instructions Patient Instructions [facility] up with the [facility] in order to get a new primary care provider. Your new primary care provider will help with getting you a possible referral to gastroenterology (liver specialist) about hepatitis C treatment. Go to the [facility] at [address] [place] [address] on Tuesday to schedule your appointment. You also need follow up with hematology (blood specialist) about hemochromatosis (iron overload) at [address] [place] [address], [address], [place] [address], to schedule an appointment. Take propranolol 20 mg twice per day. This is for your blood pressure. Continue to follow with your psychologist. I also recommend that you stop drinking alcohol for your liver health. You should also take a vitamin B1 and a folate supplement daily. Follow-up Provider: [facility] Follow-up with PCP in: 1 week Provider: Juanita Luna MD Follow-up in: Other (as soon as possible) Beata Richards DO 10/30/16 1241: Discharge Instructions Diet Discharge Diet: No restrictions, Other (low sodium diet) Patient Instructions Patient Instructions Please continue to take the propranolol as this will also help to keep the pressures low in your liver artery system which is important to do in someone in hemochromatosis. Attending's Statement The patient was seen and examined together with Dr. Hernández on 10/30/16 and I have added additional information to the note above. Gena Hernández DO Oct 30, 2016 07:22 Beata Richards DO Oct 30, 2016 12:41
[2016-10-30] MEDS ORDERED: FOLI0.4T2 PO (12:10)
[2016-10-30] MEDS ORDERED: PROP20TA5 PO ×2 (12:10→12:14)
[2016-10-30] MEDS ORDERED: Thiamine PO (12:10)
[2016-10-30 12:13] VITALS: BP 142/93; PULSE 46; RESP 20; O2SAT 100
--- NOTE | 2016-10-30 14:43 | NUR ---
Discharge Pt. given discharge instructions per MD orders. Hard prescription copy given. Care notes on Decreased LOC and metabolic acidosis given, as well as care notes on Propranolol. Saline lock d/c. Tele d/c. Pt. showered prior to d/c. Pt. verbalized understanding. Approx. discharge time 1335.
--- NOTE | 2016-10-30 14:51 | NUR ---
Social Work Note: Discharge Data& Assessment: Per pt is medically ready to discharge home. Abhilash Harris Jr is a 56 year old male admitted on 10/27/2016 for AMS and metabolic acidosis. Per pt is medically improved and ready for discharge. SW met with pt at bedside to confirm discharge plan and assess for any unmet needs. Pt confirmed plan to discharge back into the community and explained he plans to go [place] [facility]. Pt explained that he understands he has a follow up appointment on Tuesday across the [address] from the hospital. Pt declined any resources but did request a bus pass or help with the cost of a bus ride if possible as pt did not have the few dollars for [employer]. SW provided with a bus pass. Pt appreciative and denies any other needs. No other discharge needs identified. Plan: Per pt is medically ready to discharge back into the community. Pt appreciative and denies any other needs. No other discharge needs identified. ALISHA Coronado
--- NOTE | 2016-10-30 21:11 | PCM.DC.MED ---
Discharge Summary Date of Service Oct 30, 2016 Dates of Hospitalization Date of Hospital Admission Oct 27, 2016 at 23:35 Date of Discharge: Oct 30, 2016 Providers: Admitting Physician: Idnu Lee DO Primary Care Physician: Aaron Attending Physician: Indu Lee DO Diagnosis at Time of Discharge Diagnosis at Time of Discharge Alcohol dependence Acute encephalopathy Hemochromatosis Abdominal pain and diarrhea Anion gap metabolic acidosis Hypokalemia Hyponatremia Elevated transaminases Hepatitis C Bipolar disorder Procedures XRay, CTs & MRIs CT of the brain without contrast on 10/27/2016: IMPRESSION: No acute intracranial disease process. Dictated by: Mary Stanton MD, PhD on 10/27/2016 at 21:22 PROCEDURE: X-RAY CHEST ONE VIEW, PORTABLE IMPRESSION: No acute cardiopulmonary disease. Approved by: Mary Stanton MD, PhD on 10/28/2016 at 11:27 PROCEDURE: CT ABDOMEN AND PELVIS WITH CONTRAST IMPRESSION: 1. Fluid-filled stomach and nondistended small bowel loops. The finding is nonspecific and could be related to gastroenteritis. Clinical correlation suggested. 2. Colonic diverticulosis. No active diverticulitis. 2. Hepatic steatosis. No significant discrepancy with the log buyer radiology preliminary report. Approved by: Terri Parr M.D. on 10/28/2016 at 9:15 Brief History From the history and physical performed by Dr. Jr Mcnair on 10/28/16: This is a 56-year-old male who presented via EMS due to decreased level of consciousness. EMS apparently found the patient under a bridge with decreased level of consciousness. The patient states that he does not remember how he arrived at the hospital or the events that transpired before EMS transport. Hospital Course This is a 56-year-old male with history of alcohol dependence and bipolar disorder who presented for decreased level of consciousness. He had an unusual story which changed several times in the emergency department. He relayed on admission that he began feeling ill earlier today with abdominal pain, diarrhea , chills, nausea, and vomiting. He was placed on CIWA protocol, and his score decrease to 2 the morning of discharge. His abdominal pain, nausea, vomiting, and chills resolved. His diarrhea continued but improved. He was eating without issue. Due to his skin hyperpigmentation, iron studies were done, which reflected elevated iron and ferritin. He was diagnosed with hemochromatosis and hepatitis C. Patient to follow-up with hematology oncology for further workup of his hemochromatosis and possible treatment for hepatitis C and his PCP at the resident clinic upon discharge. Patient was discharged home in stable condition For a more detailed outline of hospital course see below: Alcohol dependence, present on admission, improving: -CIWA 2 morning of discharge -Pt reported only having 2 beers occasionally initially but on day of discharge reported a history of alcoholism -Patient received banana bag in ED. -Multivitamin and thiamine were given daily -CIWA protocol Acute encephalopathy, present on admission, resolved. -Secondary to alcohol intoxication and withdrawal as above -Pt was disoriented to place and time at time of admission Hemochromatosis, present on admission. - Pt has skin hyperpigmentation and elevated transaminases - Iron 185, TIBC 307, 60% iron saturation, ferritin 687; iron greater than 150 and ferritin greater than 300 are associated with hemochromatosis - Consider genetic testing as an outpatient - Hematology referral Elevated transaminases, present on admission, ongoing: -On admit AST 154, ALT 86. -The pattern suggested possible alcoholism. He reported a history of alcoholism on day of discharge. Patient ethanol level on admit was within normal limits. Patient given banana bag in the emergency department. 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 MELD score 6, 1.9% estimated 3 month mortality. -Started propanolol 20 mg twice daily for variceal hemorrhage prophylaxis Hepatitis C, present on admission - Pt will need to follow up with a PCP about pursuing treatment Bipolar disorder, chronic -Not currently taking medications - Follow up with psychologist and PCP as outpatient Essential hypertension -Propranolol started as above to prevent portal hypertension Abdominal pain and diarrhea, present on admission, improved: -Right lower quadrant abdominal pain with diarrhea, nausea, and vomiting on admission. All resolved except for diarrhea. He was able to eat without issue on day of discharge. -CT scan showed possible gastroenteritis. Likely viral gastroenteritis. -Patient did not meet sepsis criteria and did not have abdominal tenderness Anion gap metabolic acidosis, present on admission, resolved -Anion gap of 33 on admission. Blood gas showed ph of 7.328, PCO2 33, PO2 of 87.2, bicarbonate 16.8 on admission -Improved to 15 on day of discharge -Likely multifactorial and related to ethanol intoxication, iron from hematochromatosis, and lactic acidosis that resolved. Hypokalemia, acute, resolved - Likely secondary to diarrhea - 40 meq potassium chloride PO given twice Hyponatremia, present on admission, resolved: -Sodium 133 on admission and 139 on day of discharge. Exam Vital Signs (Last) Date Time Temp Pulse Resp B/P Pulse Ox O2 Delivery O2 Flow Rate FiO2 10/30/16 12:13 36.7 46 20 142/93 100 Room Air Exam General: No acute distress, well-developed, thin man. HEENT: Normocephalic. Small healing abrasion midline forehead. Anicteric sclerae, moist conjunctivae, and no lid lag. Neck: Supple with full range of motion. Cardiovascular: Regular rate and rhythm with no murmurs, rubs, or gallops appreciated Pulmonary: Clear to auscultation bilaterally with no crackles, wheezes, or rhonchi. Normal respiratory effort with no use of accessory muscles. Abdomen: Bowel tones present. Soft,nontender, nondistended. No hepatosplenomegaly or masses appreciated. Extremities: No clubbing, cyanosis, or edema appreciated. Skin: Diffusely jeffers. Lipoma right base of neck and right upper back. Normal temperature, turgor, and texture; no rash or ulcers appreciated. Neurological: Cranial nerves grossly intact. Normal muscle strength, tone, and bulk. Psychiatric: Pressured speech. Patient is alert and oriented to person, place, and time Test 10/27/16 19:38 10/27/16 23:06 10/28/16 01:00 10/28/16 02:45 Hold Purple Top Tube Received (Received) Hold Blue Top Tube Received (Received) Troponin T < 0.010ug/L (0.0-0.011) Lipase 53U/L (13-60) Procalcitonin 0.03ng/mL (0.00-0.08) Hold Red Top Tube Received (Received) Hold Thorp Top Tube Received (Received) Alcohols < 10mg/dL (0-10) Urine Color Yellow (YELLOW) Urine Appearance Clear (CLEAR,HAZY) Urine pH 6.0 (5.0-8.0) Urine Specific [place] 1.011 (1.003-1.035) Urine Protein Negativemg/dL (NEG,TRACE) Urine Glucose (UA) Negativemg/dL (NEGATIVE) Urine Ketones 15mg/dL (NEGATIVE) Urine Occult Blood Negative (NEGATIVE) Urine Nitrite Negative (NEGATIVE) Urine Bilirubin Negative (NEGATIVE) Urine Urobilinogen Normalmg/dL (NORMAL) Urine Leukocyte Esterase Negative (NEGATIVE) Urine RBC 0-2/hpf (0-2) Urine WBC 0-5/hpf (0-5) Urine Epithelial Cells Occasional/hpf (NONE-MOD) Urine Crystals None seen (NONE SEEN) Urine Bacteria None/hpf (NONE-FEW) Urine Hyaline Casts Occasional/lpf (NONE) Urine Granular Casts None seen (NONE SEEN) Urine Waxy Casts None seen (NONE SEEN) Urine Red Blood Cell Casts None seen (NONE SEEN) Urine White Blood Cell Casts None seen (NONE SEEN) Urine Mucus None seen (None Seen) Urine Trichomonas None seen (NONE SEEN) Urine Yeast None (NONE SEEN) Urine Culture Reflexed Not indicated Hepatitis A IgM Antibody Negative (Negative) Hepatitis B Surface Antigen Negative (Negative) Hepatitis B Core IgM Antibody Negative (Negative) Hepatitis C Antibody >11.0s/co ratio Hepatitis C Antibody Comment Comment (.) Hepatitis C Comment . Lactic Acid Level 1.1mmol/L (0.4-2.0) Test 10/28/16 05:15 10/28/16 08:20 10/29/16 04:15 10/29/16 12:40 Iron Level 185ug/dL (35-150) Total Iron Binding Capacity 307ug/dL (250-450) Percent Iron Saturation 60%sat (15-50) Unsaturated Iron Binding 121.7ug/dL Ferritin 687ng/mL (30-400) Prothrombin Time 10.7sec (8.1-12.5) Prothromb Time International Ratio 1.00ratio Band Neutrophils % 0% (1-5) Hemoglobin A1c 5.6% (4.8-5.6) Magnesium Level 1.9mg/dL (1.6-2.6) Ammonia 43ug/dL (18-53) HIV (1&2) Ag and Ab, 4th Generation Non reactive (Non Reactive) Test 10/30/16 02:40 White Blood Count 5.8th/mm3 (3.8-10.1) Red Blood Count 3.99mil/mm3 (4.40-5.80) Hemoglobin 13.0g/dL (13.8-17.2) Hematocrit 37.8% (41.0-50.0) Mean Corpuscular Volume 94.7fL (81-100) Mean Corpuscular Hemoglobin 32.6pg (27.0-35.0) Mean Corpuscular Hemoglobin Concent 34.4% (32.0-37.0) Red Cell Distribution Width 12.1% (12.3-15.4) Platelet Count 133bil/L (150-400) Neutrophils (%) (Auto) 61.2% (40-74) Lymphocytes (%) (Auto) 26.6% (14-46) Monocytes (%) (Auto) 9.7% (4-12) Eosinophils (%) (Auto) 2.1% (0-5) Basophils (%) (Auto) 0.2% (0-3) Sodium Level 139mEq/L (134-144) Potassium Level 3.5mEq/L (3.5-5.2) Chloride Level 101mEq/L (97-108) Carbon Dioxide Level 24mmol/L (18-29) Blood Urea Nitrogen 10mg/dL (6-24) Creatinine 0.66mg/dL (0.76-1.27) Estimat Glomerular Filtration Rate 133mL/min (>59) Glucose Level 94mg/dL (60-99) Calcium Level 9.0mg/dL (8.5-10.1) Phosphorus Level 3.5mg/dL (2.5-4.9) Total Bilirubin 0.6mg/dL (0.0-1.2) Aspartate Amino Transf (AST/SGOT) 74U/L (0-50) Alanine Aminotransferase (ALT/SGPT) 50U/L (0-44) Alkaline Phosphatase 45U/L (25-150) Total Protein 7.1g/dL (6.4-8.4) Albumin 3.6g/dL (3.4-5.0) Discharge Medications Discharge Medications ([Thiamine]) 100 MG TABLET 100 MG PO DAILY Prescribed by: GENA HERNÁNDEZ DO Folic Acid (Folic Acid) 0.4 Mg Tablet 0.4 MG PO DAILY Prescribed by: GENA HERNÁNDEZ DO Propranolol HCl (Propranolol HCl) 20 Mg Tablet 20 MG PO BID Prescribed by: GENA HERNÁNDEZ DO Followup Plan Discharge Diet: No restrictions, Other (low sodium diet) Discharge Activity: No restrictions Patient Instructions Please continue to take the propranolol as this will also help to keep the pressures low in your liver artery system which is important to do in someone in hemochromatosis. Follow-up Provider: [facility] Follow-up with PCP in: 1 week Provider: Juanita Luna MD Follow-up in: Other (as soon as possible) Time spent Greater than 35 minutes Attending Statement The patient was seen and examined together with Dr. Hernández 10/30/16 and I have added additional information to the note above. copies to: Juanita Luna MD ; [facility] Gena Hernández DO Oct 30, 2016 21:11 Beata Richards DO Oct 31, 2016 18:05 in hemochromatosis. Follow-up Provider: [facility] Follow-up with PCP in: 1 week Provider: Juanita Luna MD Follow-up in: Other (as soon as possible) Time spent Greater than 30 minutes copies to: Juanita Luna MD ; [facility] Gena Hernández DO Oct 30, 2016 21:11
== END 2016-10-30 13:36 | disposition home or self-care (01) | DRG 897 ==
LOC: SED 19:25 → OBSVTOIN 23:35 → MPC 23:35 → PCC 10-28 01:27
PROVIDERS: ADMIT Internal Medicine; ATTEND Internal Medicine
PROC: 4A033R1 Measurement of Arterial Saturation, Peripheral, Percutaneous Approach (ICD-10-PCS; principal; 2016-10-27)
DX: F10.231 Alcohol dependence with withdrawal delirium (principal); E87.2 Acidosis; E87.1 Hypo-osmolality and hyponatremia; R41.0 Disorientation, unspecified; Z59.0 Homelessness; R10.31 Right lower quadrant pain; R74.0 Nonspecific elevation of levels of transaminase and lactic acid dehydrogenase [LDH]; E87.6 Hypokalemia; B19.20 Unspecified viral hepatitis C without hepatic coma; F31.9 Bipolar disorder, unspecified; Z66 Do not resuscitate; E83.118 Other hemochromatosis; F10.229 Alcohol dependence with intoxication, unspecified; R19.7 Diarrhea, unspecified; T51.0X1A Toxic effect of ethanol, accidental (unintentional), initial encounter; I10 Essential (primary) hypertension; Y90.0 Blood alcohol level of less than 20 mg/100 ml